=== PATIENT | male | born 1975 | race Two or more races ===

== ENCOUNTER 2019-04-14 19:38 | Emergency (ER) | payer MEDICAID ==
[~2019-04-14] VITALS: Ht 170.2 cm; Wt 88.5 kg
[2019-04-14 21:49] VITALS: BP 124/79
[2019-04-14] MEDS ORDERED: FLUORESCEIN SOD 1 MG TEST STRIP RIGHTEYE ONE (22:00)
[2019-04-14] MEDS ORDERED: TETRACAINE HCL 0.5% OPTH(EYE) SOLN 4ML EACHEYE ONE (22:00)
== END 2019-04-14 22:48 | disposition home or self-care (01) ==
LOC: ER 19:43
DX: T15.01XA Foreign body in cornea, right eye, initial encounter (principal); H16.001 Unspecified corneal ulcer, right eye; W31.1XXA Contact with metalworking machines, initial encounter; Y93.89 Activity, other specified; Y92.89 Other specified places as the place of occurrence of the external cause; Y99.8 Other external cause status
CPT/HCPCS: 65222

== ENCOUNTER 2024-09-27 00:16 | Emergency (ER) | payer OTHER, MEDICAID ==
[2024-09-27 00:33] VITALS: TEMP 82.7; O2SAT 95
[2024-09-27] MEDS ORDERED: SILVER SULFADIAZINE 1 % TOPICAL CREAM 50GM TOP ONE (00:45)
[2024-09-27] MEDS: TETANUS-DIPTH-ACEL PERTUSSIS 0.5ML SYR Tdap IM ONE (00:48)
[2024-09-27 00:49] VITALS: BP 171/99; PULSE 108; RESP 18
[2024-09-27] MEDS: HYDROmorphone HCL 2 MG/ML VL/or syr IM ONE (00:49)
--- NOTE | 2024-09-27 00:53 | ED.PDOC ---
Burn HPI HPI Comments This patient is a 48-year-old male who arrives the ED today for evaluation of a left hand burn sustained a work proximally 1/2 hour prior to arrival. Patient was working with liquid aluminum when the aluminum accidentally entered his left goal of causing pierre. Patient detect in the globe as quickly as possible, but arrives with significant pierre to the hand. Patient denies any fever nausea or vomiting. Patient denies any additional burn sites. Chief Complaint: Pierre Time Seen by MD: 00:20 Primary Care Provider: Wale Howard notes: Nurses Notes Allergies: Coded Allergies: NO KNOWN ALLERGIES (Unverified , 01/07/15) Information Source: Patient, Spouse Mode of Arrival: Ambulatory Severity: Severe Timing: Minutes Duration: Since onset Prehospital treatment: None Type of Burn: Thermal, Other (Liquid aluminum) Occured in: Closed Space % Burned: 5 Tetanus: >5 Years Location: Hand Burn Quality: Painful, Red, Blisters, Charring Associated Sign and Symptoms: None Past Medical History PAST MEDICAL HISTORY: Denies Surgical History: Denies all surgeries Family History Family History: No family hx of DM, No family hx of HTN Social History Smoker: Non-Smoker Alcohol: Denies ETOH Use Drugs: Denies Drug Use Lives In: Home Constitutional: denies: chills, diaphoresis, fatigue, fever, malaise, sweats, weakness, others EENTM: denies: blurred vision, double vision, ear bleeding, ear discharge, ear drainage, ear pain, ear ringing, eye pain, eye redness, hearing loss, mouth pain, mouth swelling, nasal discharge, nose bleeding, nose congestion, nose pain, photophobia, tearing, throat pain, throat swelling, voice changes, others Respiratory: denies: cough, hemoptysis, orthopnea, SOB at rest, shortness of breath, SOB with excertion, stridor, wheezing, others Cardiovascular: denies: chest pain, dizzy spells, diaphoresis, Dyspnea on exertion, edema, irregular heart beat, left arm pain, lightheadedness, palpitations, PND, syncope, others Gastrointestinal: denies: abdomen distended, abdominal pain, blood streaked bowels, constipated, diarrhea, dysphagia, difficulty swallowing, hematemesis, melena, nausea, poor appetite, poor fluid intake, rectal bleeding, rectal pain, vomiting, others Genitourinary: denies: burning, dysuria, flank pain, frequency, hematuria, incontinence, penile discharge, penile sore, pain, testicle pain, testicle swelling, urgency, others Neurological: denies: dizziness, fainting, headache, left sided numbness, left sided weakness, numbness, paresthesia, pre-existing deficit, right sided numbness, right sided weakness, seizure, speech problems, tingling, tremors, weakness, others Musculoskeletal: denies: back pain, gout, joint pain, joint swelling, muscle pain, muscle stiffness, neck pain, others Integumetry: reports: wounds (Significant burn to majority of left hand); denies: bruises, change in color, change in hair/nails, dryness, laceration, lesions, lumps, rash, others Allergic/Immunocompromised: denies: Difficulty Healing, Frequent Infections, Hives, Itching, others Hematologic/Lymphatic: denies: anemia, blood clots, easy bleeding, easy bruising, swollen glands, others Endocrine: denies: excessive hunger, excessive sweating, excessive thirst, excessive urination, flushing, intolerance to cold, intolerance to heat, unexplained weight gain, unexplained weight loss, others Psychiatric: denies: anxiety, bipolar disorder, depression, hopeless, panic disorder, schizophrenia, sleepless, suicidal, others Physical Exam General Appearance: Moderate Distress (Moderate distress due to pain related to hand burn), Normal HEENT: Normal ENT Inspection, Pharynx Normal, TMs Normal Neck: Full Range of Motion, Non-Tender, Normal, Normal Inspection Respiratory: Chest Non-Tender, Lungs Clear, No Accessory Muscle Use, No Respiratory Distress, Normal Breath Sounds Cardiovascular: No Edema, No JVD, No Murmur, No Gallop, Normal Peripheral Pulses, Regular Rate/Rhythm Breast Exam: Deferred Gastrointestinal: No Organomegaly, Non Tender, No Pulsatile Mass, Normal Bowel Sounds, Soft Genitalia: Deferred Pelvic: Deferred Rectal: Deferred Extremities: Other (Patient reveals significant 2nd and probable 3rd degree pierre to the majority of the left hand with greatest damage appearing on the left thumb. Sloughed skin noted. Some charring on the dorsal aspect of the multiple fingers.) Neurologic: Alert, No Motor Deficits, Normal Affect, Normal Mood, No Sensory Deficits Cerebellar Function: Normal Reflexes: Normal Skin: Dry, Normal Color, Warm Lymphatic: No Adenopathy Was a procedure done? Was a procedure done?: No Differentail Diagnosis (BRN) Differential Diagnosis: Burn-Partial Thickness, Burn-Full Thickness X-Ray, Labs, Meds, VS Vital Signs Date Time Temp Pulse Resp B/P (MAP) Pulse Ox O2 Delivery O2 Flow Rate FiO2 09/27/24 00:33 82.7 108 18 171/99 (123) 95 82.7 X-Ray, Labs, Meds, VS Comment Due to the significant nature of the burn of the patient's left hand, I cont acted [facility] and spoke with Dr. Lo with the request of patient being evaluated at the burn Center. Dr. Lo agreed to the transfer. Patient will be prepared with topical Silvadene and hand wrapped before transfer. Patient will also receive pain medication and tetanus update. Time of 1ST Reevaluation: 00:52 Reevaluation 1ST: Improved Consultation: PCP Patient Education/Counseling: Diagnosis, Treatment Family Education/Counseling: Diagnosis, Treatment SEPSIS Sepsis Screen Date sepsis recognized/suspect: Sep 27, 2024 Time Sepsis recognized/suspect: 0033 Recent Procedure: No On Antibiotic Therapy: No Respiratory Rate >20: No Heart Rate >90: Yes Temp<36 C (96.8 F) or >38.3 C: No SBP <90 or MAP <65 mmHG: No New Acute Mental Status Change: No Is the patient on CPAP, BIPAP,: No Vital Signs Date Time Temp Pulse Resp B/P (MAP) Pulse Ox O2 Delivery O2 Flow Rate FiO2 09/27/24 00:33 82.7 108 18 171/99 (123) 95 82.7 Departure 1 Departure Time of Disposition: 00:52 Impression: Primary Impression: Burn Disposition: 02 SHORT TERM HOSPITAL Condition: Fair Discharged With: Self, Spouse Critical Care Note Critical Care Time?: No Stability Stability form required: No Heart Score Heart Score: Heart Score Response (Comments) Value History N/A 0 EKG N/A 0 Age N/A 0 Risk Factors N/A 0 Troponin N/A 0 Total 0 SHAWN SIMS PAC Sep 27, 2024 00:53
== END 2024-09-27 01:17 | disposition left against medical advice (07) ==
LOC: ER 00:16
DX: T23.202A Burn of second degree of left hand, unspecified site, initial encounter (principal); X08.8XXA Exposure to other specified smoke, fire and flames, initial encounter; Y93.89 Activity, other specified; Y92.89 Other specified places as the place of occurrence of the external cause; Y99.8 Other external cause status
CPT/HCPCS: 90471; 90715; 96372; 99284; J1171; 16020